=== PATIENT | male | born 1935 | race Asian ===

== ENCOUNTER 2020-08-14 07:04 | Day surgery (SDC) | payer OTHER ==
[2020-08-08 14:40] LABS: BASOPHIL % 0.4 % (0-2); PLATELET COUNT 170 x10^3mcL (130-400); RED CELL DISTRIBUTION WIDTH 14.6 % (11.5-14.5)
[2020-08-08 15:13] LABS: CALCIUM 8.8 mg/dL (8.5-10.1); CARBON DIOXIDE 28.3 mmol/L (21-32); CHLORIDE SERUM 104 mmol/L (98-107); CREATININE SERUM 1.3 mg/dL (0.7-1.3); GLUCOSE SERUM 110 mg/dL (74-106); POTASSIUM SERUM 4.1 mmol/L (3.5-5.1); SODIUM SERUM 137 mmol/L (136-145)
[2020-08-08 16:15] LABS: microscopic required? YES; urine erythrocyte 1+ (NEGATIVE)
[~2020-08-14] VITALS: Ht 162.6 cm; Wt 63.5 kg
[2020-08-14 07:34] VITALS: BP 155/66
[2020-08-14 14:48] VITALS: BP 158/85
== END 2020-08-14 14:15 | disposition home or self-care (01) ==
LOC: DS 07:04 → OR 09:00 → DS 09:00
PROVIDERS: ATTEND Urology
DX: N40.1 Benign prostatic hyperplasia with lower urinary tract symptoms (principal); N13.8 Other obstructive and reflux uropathy; E07.89 Other specified disorders of thyroid; R33.9 Retention of urine, unspecified; E78.5 Hyperlipidemia, unspecified; I10 Essential (primary) hypertension; D64.9 Anemia, unspecified; B19.10 Unspecified viral hepatitis B without hepatic coma; E03.9 Hypothyroidism, unspecified; F31.9 Bipolar disorder, unspecified; Z20.828 Contact with and (suspected) exposure to other viral communicable diseases; Z98.890 Other specified postprocedural states; Z79.899 Other long term (current) drug therapy; Z87.891 Personal history of nicotine dependence
CPT/HCPCS: J0690; J2175; J3010; Q0092; U0003-CS